=== PATIENT | male | born 1940 | race Caucasian/White ===

== ENCOUNTER → 2017-04-09 | Outpatient (CLI) | payer MEDICARE, OTHER ==
[~2017-04-09] MED LIST: ATORVASTATIN CA40 MG PO; DEPO-TESTO200 MG/1 M IM; LISINOPRIL2.5 MG PO; LOVASTATIN20 MG PO; LOVAZA1 GM PO; MULTIVITAMINS1 EAC7 PO; NITROFURANTOIN100 MG PO; POTASSIUM CITRATE PO; TESTOSTERONE IM; TYLENOL WITH C1 EACH PO; VIAGRA100 MG PO; VIT IM; VITAMIN B12 IM; Z.0.FLOMAX0.4 MG PO
--- NOTE | 2017-04-09 15:13 | Diagnostic Imaging Report ---
CT scan of the RIGHT SHOULDER, WITHOUT intravenous contrast. TECHNIQUE: Standard departmental protocols were used. Sagittal and coronal reformatted images were obtained. HISTORY: Pain, rotator cuff tear COMPARISON: Left shoulder radiograph January 16, 2017, which demonstrated an implanted cardiac device. FINDINGS: Bones: No acute displaced fracture. Superior subluxation of the humeral head, abutting the undersurface of the distal clavicle. Multiple metallic anchors within the humeral head. Joints: Moderate degenerative changes of the glenohumeral joint. Severe degenerative changes of the acromioclavicular joint. Soft Tissues: Moderate to severe atrophy of the of the supraspinatus muscle. Mild atrophy of the infraspinatus muscle. Other: Partially visualized wires from the implanted cardiac device. Multilevel degenerative changes of the visualized spine. IMPRESSION: Findings compatible with a chronic full-thickness rotator cuff tear/retear, supraspinatus and likely at least some of the conjoined infraspinatus fibers. Signed by: Dr. Juan Fairchild D.O., M.M.M. on 04/09/2017 3:09 PM
== END ==
LOC: CT 11:26
PROVIDERS: ATTEND Internal Medicine
DX: M25.511 Pain in right shoulder (principal)

== ENCOUNTER → 2017-06-12 | Outpatient (CLI) | payer MEDICARE, OTHER ==
--- NOTE | 2017-06-12 09:54 | Diagnostic Imaging Report ---
PROCEDURE:X-RAY ABDOMEN - KUB COMPARISON:CT abdomen and pelvis 07/16/2016. INDICATIONS:CALCULUS OF KIDNEY FINDINGS: There is a non-obstructed bowel-gas pattern. Bilateral nephrolithiasis, the largest in the right measuring 4.3 mm and the largest in the left measuring 4.5 mm. There are no calcifications projected over the expected course of the ureters or bladder. There are no acute osseous abnormalities. The lung bases are clear. Surgical clips are present in the right upper quadrant. CONCLUSION: Bilateral nephrolithiasis. Dictated by: Martin Heck M.D. on 06/12/2017 at 9:54 Electronically approved by: Martin Heck M.D. on 06/12/2017 at 9:54
== END ==
LOC: RAD 08:27 → EDBD 08:27
PROVIDERS: ATTEND Urology
DX: N20.0 Calculus of kidney (principal)
CPT/HCPCS: 74018

== ENCOUNTER → 2018-01-27 | Day surgery (SDC) | payer MEDICARE, OTHER ==
[2018-01-22 15:23] LABS: BASOPHILS # (AUTO) 0.1 (0.0-0.1); BASOPHILS % 0.9 % (0.0-1.0); EOSINOPHILS # (AUTO) 0.4 (0.0-0.4); EOSINOPHILS % 4.8 % (0.0-6.0); HEMOGLOBIN 17.5 g/dL (14.0-18.0); LYMPHOCYTES # (AUTO) 1.6 (1.0-3.2); LYMPHOCYTES % 20.3 % (18.0-39.1); MEAN CORPUSCULAR HEMOGLOBIN 31.5 pg (28-32); MEAN CORPUSCULAR HGB CONC 33.7 g/dL (31-35); MEAN CORPUSCULAR VOLUME 93.7 fL (81-99); MONOCYTES # (AUTO) 0.9 (0.2-0.8); MONOCYTES % 11.6 % (4.4-11.3); NEUTROPHILS # (AUTO) 4.8 (2.1-6.9); NEUTROPHILS % 62.1 % (38.7-80.0); PLATELET COUNT 214 x10e3/uL (140-360); RED BLOOD COUNT 5.55 x10e6/uL (4.3-5.7); RED CELL DISTRIBUTION WIDTH 12.9 % (11.7-14.4)
--- NOTE | 2018-01-22 15:38 | Diagnostic Imaging Report ---
Frontal and lateral views of the chest. HISTORY: Preop, UTI COMPARISON: Images from chest radiograph October 30, 2015 DISCUSSION: Stable appearance of the dual-lead implanted cardiac device. Lungs: Minimal left basilar atelectasis. Persistent diffusely increased interstitial markings. No evidence of a consolidative pneumonia or pulmonary alveolar edema. Pleura: No pleural effusion or pneumothorax. Heart and mediastinum: The cardiomediastinal silhouette appears unremarkable. Mildly prominent central pulmonary vascular. Bones: No acute osseous lesion. IMPRESSION: 1. No acute radiographic abnormality. 2. No significant interval change. 3. Stable prominent central pulmonary vasculature and pulmonary interstitium, considerations include pulmonary vascular congestion and interstitial edema versus chronic interstitial lung disease. Signed by: Dr. Juan Fairchild D.O., M.M.M. on 01/22/2018 3:35 PM
[~2018-01-27] MED LIST changes: +B-125000 MCG SC; +DEXAMETHASONE SOD PHOS INJ 4 MG/ML VIAL ONE; +FENTANYL CITRATE/PF 100MCG/2 ML INJ ONE; +GENTAMICIN 80MG/NS 100 ML 200 ML IV ONE; +IOPAMIDOL 610MG/1ML 300 MG/ML VIAL IV ONE; +KETOROLAC TROMETHAMINE 30 MG/ML VIAL ONE; +LEVOFLOXACIN 500MG/D5W 100ML 100 ML IV ONE; +LIDOCAINE HCL 2% LOCAL INJ 5 ML SDV VIAL INJ ONE; +MIDAZOLAM HCL 2 MG/2 ML VIAL ONE; +ONDANSETRON HCL INJ 2 MG/ML VIAL ONE; +PROPOFOL IV EMULSION 10 MG/ML 20 ML VIAL ONE; +SEVOFLURANE INHAL SOLN 250 ML PEN BTL ONE
--- NOTE | 2018-01-27 07:42 | Diagnostic Imaging Report ---
PROCEDURE:X-RAY ABDOMEN - KUB COMPARISON:Patients [facility], DX, ABDOMEN-1VIEW (KUB), 06/12/2017, 8:43. INDICATIONS:PREOPERATIVE XRAY FOR LITHOTRIPSY FINDINGS: Clips in the right mid abdomen and pelvis are again noted. Large amount of stool and gas interferes with optimal valuation of the kidneys for stones. There are however small stones overlying both renal shadows. There are no dilated loops of bowel to suggest obstruction. There are no masses. There is no evidence of free air. No acute osseous abnormalities are present. CONCLUSION: Small bilateral renal stones. Morgan Moe D.O. Dictated by: Morgan Moe D.O. on 01/27/2018 at 7:50 Electronically approved by: Morgan Moe D.O. on 01/27/2018 at 7:50
[2018-01-27 11:00] VITALS: BP 140/88
--- OUTSIDE RECORDS SUMMARY | 2018-02-02 13:00 | XMS REPORT ---
Author Author [facility] Address Unknown Phone Unavailable Care Team Providers Care Furniture Finisher Name Role Phone FLACO NEW Unavailable Unavailable SHIRLEY MCCAIN Unavailable Unavailable Iris DAVIS Unavailable Unavailable Problems This patient has no known problems. Allergies, Adverse Reactions, Alerts This patient has no known allergies or adverse reactions. Medications This patient has no known medications. Results Test Description Test Time Test Comments Text Results Atomic Results Result Comments ABDOMEN-1VIEW (KUB) 2018-01-27 07:50:00 [place] [address] Patient Name: LYNNE PAUL MR #: [id number] : 1940 Age/Sex: 77/M Req #: [id number] Adm Physician: Ordered by: FLACO NEW MD Report #: [id number] Location: OR Room/Bed: Procedure: [id number] DX/ABDOMEN-1VIEW (KUB) Exam Date: 01/27/18 Exam Time: 0705 REPORT STATUS: Signed PROCEDURE: X-RAY ABDOMEN - KUB COMPARISON: [facility], DX, ABDOMEN-1VIEW (KUB), 06/12/2017, 8:43. INDICATIONS: PREOPERATIVE XRAY FOR LITHOTRIPSY FINDINGS: Clips in the right mid abdomen and pelvis are again noted. Large amount of stool and gas interferes with optimal valuation of the kidneys for stones. There are however small stones overlying both renal shadows. There are no dilated loops of bowel to suggest obstruction. There are no masses. There is no evidence of free air. No acute osseous abnormalities are present. CONCLUSION: Small bilateral renal stones. Juana Moe D.O. Dictated by: Juana Moe D.O. on 01/27/2018 at 7:50 Electronically approved by: Juana Moe D.O. on 01/27/2018 at 7:50 Dictated By: JUANA MOE DO 9 Transcribed By: KALEB on 01/27/18749 COPY TO: FLACO NEW MD CHEST 2 VIEWS 2018-01-22 15:29:00 [place] [address] Patient Name: LYNNE PAUL MR #: [id number] : 1940 Age/Sex: 77/M Req #: [id number] Adm Physician: Ordered by: FLACO NEW MD Report #: [id number] Location: OR Room/Bed: Procedure: [id number] DX/CHEST 2 VIEWS Exam Date: 01/22/18 Exam Time: 1510 REPORT STATUS: Signed Frontal and lateral views of the chest. HISTORY: Preop, UTI COMPARISON: Images from chest radiograph October 30, 2015 DISCUSSION: Stable appearance of the dual-lead implanted cardiac device. Lungs: Minimal left basilar atelectasis. Persistent diffusely increased interstitial markings. No evidence of a consolidative pneumonia or pulmonary alveolar edema. Pleura: No pleural effusion or pneumothorax. Heart and mediastinum: The cardiomediastinal silhouette appears unremarkable. Mildly prominent central pulmonary vascular. Bones: No acute osseous lesion. IMPRESSION: 1. No acute radiographic abnormality. 2. No significant interval change. 3. Stable prominent central pulmonary vasculature and pulmonary interstitium, considerations include pulmonary vascular congestion a nd interstitial edema versus chronic interstitial lung disease. Signed by: Dr. Dwight Fairchild D.O., M.M.M. on 01/22/2018 3:35 PM Dictated By: DWIGHT FAIRCHILD DO 34 Transcribed By: LAW on 01/22/181534 COPY TO: FLACO NEW MD ABDOMEN-1VIEW (KUB) [place] [address] Patient Name: LYNNE PAUL MR #: [id number] : 1940 Age/Sex: 76/M Req #: [id number] Adm Physician: Ordered by: FLACO NEW MD Report #: [id number] Location: [facility] Room/Bed: Procedure: [id number] DX/ABDOMEN-1VIEW (KUB) Exam Date: 06/12/17 Exam Time: 0840 REPORT STATUS: Signed PROCEDURE: X-RAY ABDOMEN - KUB COMPARISON: CT abdomen and pelvis 07/16/2016. INDICATIONS: CALCULUS OF KIDNEY FINDINGS: There is a non-obstructed bowel-gas pattern. Bilateral nephrolithiasis, the largest in the right measuring 4.3 mm and the largest in the left measuring 4.5 mm. There are no calcifications projected over the expected course of the ureters or bladder. There are no acute osseous abnormalities. The lung bases are clear. Surgical clips are present in the right upper quadrant. CONCLUSION: Bilateral nephrolithiasis. Dictated by: Harshal Irene M.D. on 06/12/2017 at 9:54 Electronically approved by: Harshal Irene M.D. on 06/12/2017 at 9:54 Dictated By: HARSHAL IRENE MD 3 Transcribed By: KALEB on 06/12/17953 COPY TO: FLACO NEW MD CT SHOULDER RIGHT WO [place] [address] Patient Name: LYNNE PAUL MR #: [id number] : 1940 Age/Sex: 76/M Req #: [id number] Adm Physician: Ordered by: SHIRLEY MCCAIN MD Report #: [id number] Location: CT Room/Bed: Procedure: [id number] CT/CT SHOULDER RIGHT WO Exam Date: 04/09/17 Exam Time: 1240 REPORT STATUS: Signed CT scan of the RIGHT SHOULDER, WITHOUT intravenous contrast. TECHNIQUE: Standard departmental protocols were used. Sagittal and coronal reformatted images were obtained. HISTORY: Pain, rotator cuff tear COMPARISON: Left shoulder radiograph January 16, 2017, which demonstrated an implanted cardiac device. FINDINGS: Bones: No acute displaced fracture. Superior subluxation of the humeral head, abutting the undersurface of the distal clavicle. Multiple metallic anchors within the humeral head. Joints: Moderate degenerative changes of the glenohumeral joint. Severe degenerative changes of the acromioclavicular joint. Soft Tissues: Moderate to severe atrophy of the of the supraspinatus muscle. Mild atrophy of the infraspinatus muscle. Other: Partially visualized wires from the implanted cardiac device. Multilevel degenerative changes of the visualized spine. IMPRESSION: Findings compatible with a chronic full-thickness rotator cuff tear/retear, supraspinatus and likely at least some of the conjoined infraspinatus fibers. Signed by: Dr. Dwight Fairchild D.O., M.M.M. on 04/09/2017 3:09 PM Dictated By: DWIGHT FAIRCHILD DO 1509 Transcribed By: LAW on 04/09/171508 COPY TO: SHIRLEY MCCAIN MD CT SHOULDER LEFT WO [place] [address] Patient Name: LYNNE PAUL MR #: [id number] : 1940 Age/Sex: 76/M Req #: [id number] Adm Physician: Ordered by: SHIRLEY MCCAIN MD Report #: [id number] Location: CT Room/Bed: Procedure: [id number] CT/CT SHOULDER LEFT WO Exam Date: 01/23/17 Exam Time: 1401 REPORT STATUS: Signed TECHNIQUE: Computed tomography imaging of the LEFT SHOULDER was performed WITHOUT injected contrast. COMPARISON: None available. HISTORY: Pain FINDINGS: No acute fracture. Cystic change on the greater and lesser tuberosity. Narrowed acromiohumeral interval secondary to chronic rotator cuff tear. Mild glenohumeral degenerative arthrosis. Mild acromioclavicular widening Soft tissues otherwise are unremarkable. No fluid collection or visualized mass. IMPRESSION: Mild glenohumeral degenerative arthrosis. Chronic high-grade rotator cuff tear. Signed by: Dr. Duke Castro M.D. on 01/23/2017 3:26 PM Dictated By: DUKE CASTRO MD 1526 Transcribed By: LAW on 01/23/17 1526 COPY TO: SHIRLEY MCCAIN MD SHOULDER LEFT COMPLETE [place] [address] Patient Name: LYNNE PAUL MR #: [id number] : 1940 Age/Sex: 76/M Req #: [id number] Adm Physician: Ordered by: THU DAVIS MD Report #: [id number] Location: ER Room/Bed: Procedure: [id number] DX/SHOULDER LEFT COMPLETE Exam Date: 01/16/17 Exam Time: 1020 REPORT STATUS: Signed PROCEDURE: X-RAY LEFT SHOULDER, COMPLETE COMPARISON: Chest radiograph 05/12/2016. INDICATIONS: FELL ON LEFT SHOULDER FINDINGS: No acute, displaced fracture or dislocation. The humeral head projects appropriately adjacent to the glenoid. Mild degenerative changes of the acromioclavicular and glenohumeral joints. Partially visualized left subclavian approach implantable cardiac device.. CONCLUSION: No acute osseous abnormality. Dictated by: Alfred Mata M.D. on 01/16/2017 at 11:00 Electronically approved by: Alfred Mata M.D. on 01/16/2017 at 11:00 Dictated By: ALFRED MATA MD 1100 Transcribed By: KALEB on 01/16/17 1100 COPY TO: THU DAVIS MD
--- NOTE | 2018-03-02 03:53 | Operative Report ---
DATE OF PROCEDURE: January 27, 2018 PREOPERATIVE DIAGNOSES 1. Urinary tract infections. 2. Nephrolithiasis. POSTOPERATIVE DIAGNOSES 1. Urinary tract infections. 2. Nephrolithiasis. 3. Urethral stricture disease. OPERATIONS PERFORMED 1. Cystourethroscopy with calibration and dilation of urethral stricture disease (separate procedure performed for the diagnosis of stricture disease). 2. Cystourethroscopy with bilateral ureteral catheterization and retrograde ureteropyelography (separate procedure performed for the urinary tract infections and nephrolithiasis). 3. Interpretation of retrograde ureterography. ANESTHESIA: General. COMPLICATION: None. CLINICAL SUMMARY: Richi Trejo is a complicated 77-year-old man with prior multiple urological surgeries. Patient was brought to the operating room to evaluate and manage his lower and upper urinary tracts. He is aware of the risks of bleeding, infection, injury to adjacent structures, need for additional procedure, and elected to proceed. OPERATIVE PROCEDURE IN DETAIL: Informed consent was verified. Richi Trejo was properly identified, taken to the operating room, placed on the cystoscopy table in supine position. Anesthesia was uneventfully begun. The patient was then carefully and gently repositioned in the dorsal lithotomy position with all pressure points well padded. His genitalia were prepared and draped in usual sterile fashion. The 22.5-Khmer cystoscope sheath with visual obturator in place was atraumatically inserted in patient's urethra. It was guided down the penile urethra that exhibited some wide-caliber stricturing. We dilated it through this stricture as we enlarged the stricture area to 22.5-Khmer, which is the size of the scope. We then proceeded to the proximal urethra, which exhibited no strictures. There was a blind-ending channel, which previously was related to the scrotal abscess. We passed through a normal sphincteric region and through the prostate bed, which was significant for being status post prior prostate ablative procedure. There was some anterior tissue that was slightly caving in more from the left and right-hand side, but the prostate bed was relatively open. We entered the patient's bladder. Panendoscopy revealed heavy trabeculations, but no tumors, no stones, and no diverticula. Normally positioned and configured ureteral orifices were identified. An 8-Khmer catheter was used to cannulate each ureter and retrograde ureteropyelograms were performed. Interpretation of retrograde ureteropyelography: Contrast was instilled in retrograde fashion bilaterally. There were no tumors, no stones, and no diverticula. Unobstructed drainage was observed bilaterally fluoroscopically. J-hooking was noted bilaterally. The patient's known nephrolithiasis was really not well visualized on today's examination. The patient's bladder was drained. The patient was uneventfully reversed from anesthesia and taken to recovery room in stable condition. There were no complications to the procedure. He tolerated the procedure well. Explicit postop instructions were given. Will follow the patient up in the office. At which point in time, will perform uroflowmetry and bladder ultrasonography. Job#: [id number] CQ
== END | disposition home or self-care (01) ==
LOC: OR 06:06
PROVIDERS: ATTEND Urology
DX: N39.0 Urinary tract infection, site not specified (principal); N35.919 Unspecified urethral stricture, male, unspecified site; N20.0 Calculus of kidney; N32.89 Other specified disorders of bladder; I10 Essential (primary) hypertension; F17.210 Nicotine dependence, cigarettes, uncomplicated; Z88.0 Allergy status to penicillin; Z88.6 Allergy status to analgesic agent; Z88.3 Allergy status to other anti-infective agents; Z88.2 Allergy status to sulfonamides; Z01.810 Encounter for preprocedural cardiovascular examination; Z01.812 Encounter for preprocedural laboratory examination; Z01.818 Encounter for other preprocedural examination; Z95.0 Presence of cardiac pacemaker
CPT/HCPCS: 36415; 52281; 71046; 74420; 85025; 93005; C1758; J1100; J1580; J1885; J1956; J2001; J2250; J2405; Q9967; 74018

== ENCOUNTER → 2018-05-05 | Day surgery (SDC) | payer MEDICARE, OTHER ==
[2018-05-03 14:47] LABS: BASOPHILS # (AUTO) 0.1 (0.0-0.1); BASOPHILS % 0.9 % (0.0-1.0); EOSINOPHILS # (AUTO) 0.5 (0.0-0.4); HEMOGLOBIN 18.6 g/dL (14.0-18.0); LYMPHOCYTES # (AUTO) 1.7 (1.0-3.2); LYMPHOCYTES % 19.1 % (18.0-39.1); MEAN CORPUSCULAR HEMOGLOBIN 31.5 pg (28-32); MEAN CORPUSCULAR HGB CONC 33.8 g/dL (31-35); MEAN CORPUSCULAR VOLUME 93.1 fL (81-99); MONOCYTES # (AUTO) 1.1 (0.2-0.8); MONOCYTES % 12.3 % (4.4-11.3); NEUTROPHILS # (AUTO) 5.3 (2.1-6.9); NEUTROPHILS % 61.2 % (38.7-80.0); PLATELET COUNT 217 x10e3/uL (140-360); RED BLOOD COUNT 5.91 x10e6/uL (4.3-5.7); RED CELL DISTRIBUTION WIDTH 13.3 % (11.7-14.4)
[~2018-05-05] MED LIST changes: -DEXAMETHASONE SOD PHOS INJ 4 MG/ML VIAL ONE; +EPHEDRINE SULFATE INJ 50 MG/10 ML SYR ONE; -FENTANYL CITRATE/PF 100MCG/2 ML INJ ONE; -GENTAMICIN 80MG/NS 100 ML 200 ML IV ONE; -IOPAMIDOL 610MG/1ML 300 MG/ML VIAL IV ONE; -KETOROLAC TROMETHAMINE 30 MG/ML VIAL ONE; -LEVOFLOXACIN 500MG/D5W 100ML 100 ML IV ONE; -LIDOCAINE HCL 2% LOCAL INJ 5 ML SDV VIAL INJ ONE; +NORCO 10-325 T1 EACH PO; -ONDANSETRON HCL INJ 2 MG/ML VIAL ONE; -PROPOFOL IV EMULSION 10 MG/ML 20 ML VIAL ONE; +PROPOFOL IV EMULSION 10 MG/ML 50 ML VIAL ONE; -SEVOFLURANE INHAL SOLN 250 ML PEN BTL ONE; +SIMETHICONE 40 MG/0.6 ML BTL ONE
[2018-05-05 08:30] VITALS: BP 102/61
== END | disposition home or self-care (01) ==
LOC: OR 06:25
PROVIDERS: ATTEND Internal Medicine Gastroenterology
DX: K57.90 Diverticulosis of intestine, part unspecified, without perforation or abscess without bleeding (principal); D12.3 Benign neoplasm of transverse colon; D12.4 Benign neoplasm of descending colon; Z85.038 Personal history of other malignant neoplasm of large intestine; K64.8 Other hemorrhoids; K64.4 Residual hemorrhoidal skin tags; Z71.3 Dietary counseling and surveillance; E66.3 Overweight; F17.210 Nicotine dependence, cigarettes, uncomplicated; Z88.6 Allergy status to analgesic agent; Z88.3 Allergy status to other anti-infective agents; Z88.0 Allergy status to penicillin; Z88.2 Allergy status to sulfonamides; Z01.810 Encounter for preprocedural cardiovascular examination; Z01.812 Encounter for preprocedural laboratory examination; Z68.25 Body mass index [BMI] 25.0-25.9, adult; Z95.0 Presence of cardiac pacemaker
CPT/HCPCS: 36415; 45380; 45385; 85025; 88305; 93005; J2250; 45384

== ENCOUNTER → 2018-06-30 | Day surgery (SDC) | payer MEDICARE, OTHER ==
[2018-06-28 12:26] LABS: BASOPHILS # (AUTO) 0.1 (0.0-0.1); EOSINOPHILS # (AUTO) 0.4 (0.0-0.4); EOSINOPHILS % 4.6 % (0.0-6.0); HEMATOCRIT 56.3 % (38.2-49.6); HEMOGLOBIN 18.7 g/dL (14.0-18.0); LYMPHOCYTES # (AUTO) 1.5 (1.0-3.2); LYMPHOCYTES % 18.3 % (18.0-39.1); MEAN CORPUSCULAR HEMOGLOBIN 31.2 pg (28-32); MEAN CORPUSCULAR HGB CONC 33.2 g/dL (31-35); MONOCYTES # (AUTO) 1.1 (0.2-0.8); MONOCYTES % 13.1 % (4.4-11.3); NEUTROPHILS # (AUTO) 5.1 (2.1-6.9); NEUTROPHILS % 62.8 % (38.7-80.0); PLATELET COUNT 225 x10e3/uL (140-360); RED BLOOD COUNT 5.99 x10e6/uL (4.3-5.7); RED CELL DISTRIBUTION WIDTH 13.4 % (11.7-14.4)
[2018-06-28 12:36] LABS: INR 0.84
[2018-06-28 12:44] LABS: ANION GAP 13.5 mmol/L (8-16); CALCIUM 10.8 mg/dL (8.4-10.2); CREATININE, SERUM 1.29 mg/dL (0.72-1.25); POTASSIUM 5.5 mmol/L (3.5-5.1)
--- NOTE | 2018-06-28 14:56 | Diagnostic Imaging Report ---
EXAM: CHEST 2 VIEWS, PA and lateral DATE: 06/28/2018 Time stamp on exam: 12:28 PM INDICATION: Preoperative for generator change. COMPARISON: 01/22/2018 FINDINGS: LINES/TUBES: Dual lead cardiac device from a left subclavian approach appears intact. LUNGS: Chronic appearing interstitial changes. PLEURA: No effusions or pneumothorax. HEART AND MEDIASTINUM: Normal size and contour. BONES AND SOFT TISSUES: No acute findings. IMPRESSION: Chronic appearing interstitial changes. Signed by: Dr. Morgan Moe DO on 06/28/2018 2:53 PM
[~2018-06-30] VITALS: Ht 175.3 cm; Wt 81.6 kg
[2018-06-30] VITALS (12 sets, daily range): BP systolic 127–145; BP diastolic 61–80
[~2018-06-30] MED LIST changes: +BACITRACIN 50,000 UNIT VIAL ONE; -EPHEDRINE SULFATE INJ 50 MG/10 ML SYR ONE; +FENTANYL CITRATE/PF 100MCG/2 ML INJ ONE; +LEVOFLOXACIN 500MG/D5W 100ML 100 ML IV ONE; +LIDOCAINE HCL 2% LOCAL 20 ML VIAL ONE; -PROPOFOL IV EMULSION 10 MG/ML 50 ML VIAL ONE; -SIMETHICONE 40 MG/0.6 ML BTL ONE; +SODIUM CHLORIDE 0.9% 1000ML 1,000 ML ONE; +SODIUM CHLORIDE 0.9% 500ML 1,000 ML ONE
--- NOTE | 2018-06-30 15:55 | Operative Report ---
DATE OF PROCEDURE: 06/30/2018 SURGEON: Emiliano Light MD PROCEDURES: 1. Temporary transvenous pacemaker insertion. 2. Generator placement. 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 ANESTHESIA: 2% lidocaine for local anesthesia. BLOOD LOSS: 5 mL. DESCRIPTION OF PROCEDURE: After informed consent, the patient was brought to the cardiac catheterization laboratory and placed on table. His right groin was painted and draped in a sterile fashion. Lidocaine injected in the right groin for local anesthesia. The right femoral vein was accessed by Seldinger technique and a 5-[place] Islander sheath was placed in the right femoral vein. Transvenous pacemaker was advanced through the sheath and placed in the right ventricle. Thresholds were checked. Appropriate capture was noted. The pacemaker was anchored to the underlying leg using Tegaderm. Then, left upper chest was painted and draped in a sterile fashion. Lidocaine was injected to the left upper chest for local anesthesia. An incision was made with #11 blade. A pocket was fashioned by blunt and sharp dissection. The capsule of the pacemaker was incised and the pacemaker generator was removed from the pocket. Pocket was irrigated with antibiotic solution. The generator was disconnected from the leads and the leads were connected to the new generator. Good capture was noted. Thresholds were checked. The pacemaker was anchored to the underlying muscle using 2-0 Vicryl. Subcutaneous tissue was closed using 2-0 Vicryl and skin was closed using 3-0 Vicryl. The wound was cleaned and dressed in a sterile fashion. The patient was given Levaquin as he was allergic to vancomycin and penicillin prior to the start of procedure. The patient tolerated the procedure without any complications. REPORT: [employer] Operator is [employer], model name was Tixie ([employer] IS1, model number is L311, and serial number is [id number]. MEASURED DATA: Right atrium; intrinsic 7.7 mV, threshold 0.8 V at 0.4 milliseconds, impedance was 587, current was 1.4 milliamps. Right ventricle; intrinsic was 11.6 mV, threshold was 2.1 V at 0.4 milliseconds, impedance was 597, current was 3.7 milliamps. Lower rate limit was 60, upper rate limit was 130. PVAR was 240 to 320 milliseconds. MD ROBER Dong/JEAN CLAUDE /[id number]
== END | disposition home or self-care (01) ==
LOC: CATH LAB 07:28
DX: Z45.010 Encounter for checking and testing of cardiac pacemaker pulse generator [battery] (principal); E78.5 Hyperlipidemia, unspecified; Z88.1 Allergy status to other antibiotic agents; Z88.2 Allergy status to sulfonamides; Z01.810 Encounter for preprocedural cardiovascular examination; Z01.812 Encounter for preprocedural laboratory examination; Z01.818 Encounter for other preprocedural examination
CPT/HCPCS: 33228; 36415 ×2; 71046; 80048; 84132; 85025; 85610; 93005; C1785; J1956; J2001; J2250; J7030; J7040; 33210

== ENCOUNTER → 2018-08-26 | Outpatient (CLI) | payer MEDICARE, OTHER ==
[~2018-08-26] MED LIST changes: -BACITRACIN 50,000 UNIT VIAL ONE; -FENTANYL CITRATE/PF 100MCG/2 ML INJ ONE; -LEVOFLOXACIN 500MG/D5W 100ML 100 ML IV ONE; -LIDOCAINE HCL 2% LOCAL 20 ML VIAL ONE; -MIDAZOLAM HCL 2 MG/2 ML VIAL ONE; -SODIUM CHLORIDE 0.9% 1000ML 1,000 ML ONE; -SODIUM CHLORIDE 0.9% 500ML 1,000 ML ONE
--- NOTE | 2018-08-26 15:30 | Diagnostic Imaging Report ---
EXAM: ABDOMEN-2 VIEWS (KUB) INDICATION: Renal calculus. COMPARISON: KUB 01/27/2018. CT abdomen/pelvis 07/16/2016. FINDINGS: Nonobstructive bowel gas pattern. Bowel gas partially obscures visualization of the kidneys. There is a 4 mm calcification overlying the right mid kidney and two 5 mm calcifications overlying the left upper kidney. Additional 1 mm calcifications overlie the left mid kidney. No evidence of ureteral stone. There are calcified phleboliths in the bladder. No acute osseous abnormality. Surgical clips project over the right hemiabdomen. IMPRESSION: Somewhat limited study due to overlying bowel gas. Likely bilateral renal stones as above. Signed by: Dr. Salud Mcintosh MD on 08/26/2018 3:27 PM
== END ==
LOC: RAD 14:07
PROVIDERS: ATTEND Urology
DX: N20.0 Calculus of kidney (principal)
CPT/HCPCS: 74018

== ENCOUNTER → 2018-09-14 | Outpatient (CLI) | payer MEDICARE, OTHER ==
--- NOTE | 2018-09-14 18:34 | Diagnostic Imaging Report ---
EXAM: CT ABDOMEN/PELVIS WO DATE: 09/14/2018 4:02 PM INDICATION: Renal calculi COMPARISON: CT dated 07/16/2016 TECHNIQUE: The abdomen and pelvis were scanned using a multidetector helical scanner. Coronal and sagittal reformations were obtained. CT low dose techniques were utilized, as applicable. IV Contrast: 0 ml Isovue 300/370 FINDINGS: Lack of IV contrast decreases sensitivity in evaluating abdominal and pelvic organs. LOWER THORAX: No consolidations LIVER/BILIARY: No masses. No ductal dilatation. GALLBLADDER: Unremarkable SPLEEN: Unremarkable PANCREAS: Unremarkable ADRENALS: No nodules KIDNEYS: Multiple bilateral nonobstructing renal collecting and cortical calculi. The largest calculus conglomerate in the left mid pole measures 18 mm, the largest on the right measures 5 mm. Stable soft tissue nodule between the anterior right kidney in the liver. Multiple bilateral renal cysts which are incompletely characterized on this noncontrast exam. One of these lesions is exophytic off the left superior kidney has increased in size now measuring 11 mm, previously 8 mm in 2017 GI TRACT: No wall thickening or evidence of obstruction. Colonic diverticulosis. VESSELS: Unremarkable PERITONEUM/RETROPERITONEUM: No free air or fluid LYMPH NODES: No lymphadenopathy REPRODUCTIVE ORGANS/BLADDER: Prostatomegaly. No bladder calculi. SOFT TISSUES: Unremarkable BONES: No suspicious bone lesions. IMPRESSION: 1. Multiple bilateral nonobstructing renal calculi measuring up to 18 mm on the left in conglomerate and 5 mm on the right. 2. Multiple bilateral renal cysts aren't completely characterized. One on the superior pole the left kidney has increased in size measuring 11 mm, previously 8 mm in 2017, and measures greater than soft tissue density which may represent a hemorrhagic or partially calcified cyst. Dedicated renal ultrasound or multiphase cross-sectional imaging is recommended for further characterization of these renal lesions. Signed by: Kory Kramer MD on 09/14/2018 6:30 PM
== END ==
LOC: EDBD 15:50 → CT 15:50 → EDBD 16:30
PROVIDERS: ATTEND Urology
DX: N20.0 Calculus of kidney (principal)
CPT/HCPCS: 74176

== ENCOUNTER → 2018-10-22 | Day surgery (SDC) | payer MEDICARE, OTHER ==
[2018-10-20 11:57] LABS: BASOPHILS # (AUTO) 0.1 (0.0-0.1); EOSINOPHILS # (AUTO) 0.3 (0.0-0.4); EOSINOPHILS % 4.4 % (0.0-6.0); HEMATOCRIT 57.4 % (38.2-49.6); HEMOGLOBIN 19.2 g/dL (14.0-18.0); LYMPHOCYTES # (AUTO) 1.4 (1.0-3.2); MEAN CORPUSCULAR HEMOGLOBIN 29.4 pg (28-32); MEAN CORPUSCULAR HGB CONC 33.4 g/dL (31-35); MEAN CORPUSCULAR VOLUME 87.9 fL (81-99); MONOCYTES # (AUTO) 1.1 (0.2-0.8); MONOCYTES % 13.6 % (4.4-11.3); NEUTROPHILS # (AUTO) 4.8 (2.1-6.9); NEUTROPHILS % 62.6 % (38.7-80.0); PLATELET COUNT 246 x10e3/uL (140-360); RED BLOOD COUNT 6.53 x10e6/uL (4.3-5.7); RED CELL DISTRIBUTION WIDTH 14.2 % (11.7-14.4)
--- NOTE | 2018-10-20 13:00 | Diagnostic Imaging Report ---
Exam: KUB - 2 views Clinical History: Renal calculi Comparison: CT abdomen and pelvis of 09/06/2018 and multiple prior abdominal radiographs, most recently 08/26/2018 Findings: Again seen is a cluster of renal calculi in the right upper kidney, measuring approximately 1.7 cm in longest dimension superior to inferiorly. No new calculi identified. Postoperative changes across the right abdomen with surgical clips in place. Not certain bowel gas pattern. Mild degenerative changes of the visualized spine and left greater than left right hip joints. Impression: Cluster of left upper pole renal calculi, not significantly changed from the CT of 09/06/2018. Signed by: Hilary Tyler MD on 10/20/2018 12:56 PM
[~2018-10-22] MED LIST changes: +B&O 60MG R/S 60 MG SUPP PR ONE; +CEFTRIAXONE SOD 1 GM/NS 50 ML 50 ML IV ONE; +DEXAMETHASONE SOD PHOS INJ 4 MG/ML VIAL ONE; +FENTANYL CITRATE/PF 100MCG/2 ML INJ ONE; +GENTAMICIN 80MG/NS 100 ML 200 ML IV ONE; +IOPAMIDOL 610MG/1ML 300 MG/ML VIAL IV ONE; +LIDOCAINE HCL 2% LOCAL INJ 5 ML SDV VIAL INJ ONE; +MIDAZOLAM HCL 2 MG/2 ML VIAL ONE; +MULTI-VITAMIN1 EACH PO; +ONDANSETRON HCL INJ 2MG/ML 2ML 2 MG/ML VIAL ONE; +PROPOFOL IV EMULSION 10 MG/ML 20 ML VIAL ONE; +SEVOFLURANE INHAL SOLN 250 ML PEN BTL ONE
[2018-10-22 09:40] VITALS: BP 145/95
--- NOTE | 2018-10-22 16:18 | Operative Report ---
DATE OF PROCEDURE: 10/22/2018 SURGEON: Barry Parry MD PREOPERATIVE DIAGNOSES: 1. Left nephrolithiasis. 2. Potential left renal colic. POSTOPERATIVE DIAGNOSES: 1. Left nephrolithiasis. 2. Potential left renal colic. 3. Urethral stricture disease. OPERATION PERFORMED: Note: These were all staged procedures as part of a multi-stage and multi-step process in managing the patient's urolithiasis. 1. Left-sided extracorporeal shock wave lithotripsy (separate procedure performed for the 18 mm stone cluster in the upper pole of left kidney, done from separate approach). 2. Cystourethroscopy with bilateral ureteral catheterization and retrograde ureteropyelography. 3. Interpretation of retrograde ureteropyelography. 4. Cystourethroscopy with insertion of left indwelling ureteral stent (separate procedure performed to relieve the renal colic). 5. Cystourethroscopy with calibration and dilation of recurrent urethral stricture disease (separate procedure performed for the stricture disease). ANESTHESIA: General. COMPLICATIONS: None. CLINICAL SUMMARY: Richi Trejo is a 77-year-old man with recurrent urolithiasis. He also has had a transurethral prostatectomy remotely in the past. He has hypospadias and has had urethral stricture disease as a result of prior management by prior urologist. The patient is brought for the above procedure. He is aware of the risks of bleeding, infection, injury to adjacent structures, need for additional procedures and elected to proceed. OPERATIVE PROCEDURE IN DETAIL: Informed consent was verified. Richi Trejo was properly identified taken to the operating room, placed on the lithotripsy table in supine position. Anesthesia was uneventfully begun. The left upper pole large cluster of stones was localized with biplanar fluoroscopy. A total of 3000 shocks were delivered, fragmentation noted. The patient was then carefully gently repositioned to the dorsal lithotomy position with all pressure points well padded. His genitalia were prepared and draped in usual sterile fashion. A 22.5-Surinamese cystourethroscope sheath with the visual obturator in place was atraumatically inserted in the patient's hypospadiac urethral meatus. There was significant resistance and under direct vision, we dilated the urethra to 22.5-Surinamese in size. The strictures that were significant were at the distal portion of the urethra. The proximal portion of the urethra exhibited only wide caliber scarring, but no evidence of obstruction. We passed through the normal sphincteric region, entered into the prostatic urethra, which exhibited regrowth and visual obstruction at the apical region as well as collapse of the residual BPH more proximally. Visual obstruction of the prostate bed was noted. We went to the patient's bladder and the bladder was drained. Panendoscopy revealed heavy trabeculations of the bladder. Both ureteral orifices were identified. An open-ended ureteral catheter was used to cannulate the left ureter and retrograde ureteropyelograms were performed. With cystoscope and fluoroscopic guidance, the left-sided indwelling ureteral stent was then placed to coil the patient's renal pelvis as well as the patient's bladder. The retaining suture was cut short. An open-ended catheter was then inserted in the right ureter and retrograde ureteropyelograms were performed. Interpretation of retrograde ureteropyelography contrast was instilled in a retrograde fashion bilaterally. There were filling defects in the upper pole region of the left kidney corresponding to stone debris as well as blood clots from the lithotripsy we performed. There was no hydronephrosis. The stent was in good position, coiled in the patient's renal pelvis as well as the patient's bladder. The right side exhibited a very abnormal upper pole calyceal structure with a collecting system extension that is unusual, but is stable from prior findings. No hydronephrosis was noted. The stone noted on CT and preoperative KUB was not well visualized on fluoroscopic examination. Unobstructed drainage was observed fluoroscopically. The patient's bladder was drained. Cystoscope was withdrawn. Belladonna and opium suppository were placed, revealing the prostate is at least 40 g in size, smooth and non-fluctuant without any nodules. The patient was then uneventfully reversed from anesthesia and taken to recovery room in stable condition. There were no complications of procedure. The patient tolerated the procedure well. Plans will be to re-bring the patient back to the operating room for right ESWL in conjunction with a left ureteroscopy with laser as necessary. Barry Parry MD [place]/[facility] /[id number] cc: Justin Floyd MD
== END | disposition home or self-care (01) ==
LOC: OR 06:00
PROVIDERS: ATTEND Urology
DX: N20.0 Calculus of kidney (principal); N35.919 Unspecified urethral stricture, male, unspecified site; N40.0 Benign prostatic hyperplasia without lower urinary tract symptoms; N32.89 Other specified disorders of bladder; N13.8 Other obstructive and reflux uropathy; R35.1 Nocturia; I49.5 Sick sinus syndrome; F17.210 Nicotine dependence, cigarettes, uncomplicated; Z01.810 Encounter for preprocedural cardiovascular examination; Z01.812 Encounter for preprocedural laboratory examination; Z88.6 Allergy status to analgesic agent; Z88.0 Allergy status to penicillin; Z88.2 Allergy status to sulfonamides; Z95.0 Presence of cardiac pacemaker
CPT/HCPCS: 36415; 50590; 52282; 74018; 85025; 93005; C1758; C1874; J0696; J1100; J1580; J2001; J2250; J2405; J2704; Q9967; J3010

== ENCOUNTER → 2018-12-28 | Day surgery (SDC) | payer MEDICARE, OTHER ==
--- NOTE | 2018-12-27 10:53 | Diagnostic Imaging Report ---
Exam: KUB - 2 views Indication: Preoperative Comparison: Multiple prior abdominal radiographs, most recently of 10/20/2018 Findings: Interval placement of left internal nephroureteral stent with proximal loop overlying the expected location of the renal pelvis and distal loop in the bladder. 6 mm calcific density just lateral to the proximal loop of the stent may represent renal calculus or intraluminal bowel content. Phleboliths in the pelvis. Postoperative changes with surgical clips in the right lower quadrant. Nonobstructive bowel gas pattern. No free air. The partially visualized lung bases appear clear. Partially visualized pacemaker leads terminating in the right atrium and right ventricle. Impression: Interval placement of left internal nephroureteral stent in expected position. 6 mm calcific density lateral to the proximal loop of the stent may represent renal calculus or intraluminal bowel content. Signed by: Hilary Tyler MD on 12/27/2018 10:50 AM
[2018-12-27 11:03] LABS: BASOPHILS # (AUTO) 0.1 (0.0-0.1); BASOPHILS % 1.1 % (0.0-1.0); EOSINOPHILS # (AUTO) 0.5 (0.0-0.4); EOSINOPHILS % 6.6 % (0.0-6.0); HEMATOCRIT 55.1 % (38.2-49.6); HEMOGLOBIN 18.4 g/dL (14.0-18.0); LYMPHOCYTES # (AUTO) 1.5 (1.0-3.2); LYMPHOCYTES % 19.5 % (18.0-39.1); MEAN CORPUSCULAR HEMOGLOBIN 29.8 pg (28-32); MEAN CORPUSCULAR HGB CONC 33.4 g/dL (31-35); MEAN CORPUSCULAR VOLUME 89.2 fL (81-99); MONOCYTES # (AUTO) 0.8 (0.2-0.8); MONOCYTES % 10.2 % (4.4-11.3); NEUTROPHILS # (AUTO) 4.6 (2.1-6.9); NEUTROPHILS % 62.1 % (38.7-80.0); PLATELET COUNT 258 x10e3/uL (140-360); RED BLOOD COUNT 6.18 x10e6/uL (4.3-5.7); RED CELL DISTRIBUTION WIDTH 14.6 % (11.7-14.4)
[~2018-12-28] MED LIST changes: -CEFTRIAXONE SOD 1 GM/NS 50 ML 50 ML IV ONE; +FLUCONAZOLE 100 MG TAB ONE; +LEVOFLOXACIN 500MG/D5W 100ML 100 ML IV ONE; +PHENYLEPHRINE HCL 1% 10 MG/ML VIAL ONE
[2018-12-28 09:45] VITALS: BP 137/80
--- NOTE | 2019-02-03 07:16 | Operative Report ---
DATE OF PROCEDURE: 12/28/2018 SURGEON: Barry Parry MD PREOPERATIVE DIAGNOSES: 1. Bilateral nephrolithiasis. 2. Foreign body (left indwelling ureteral stent). 3. Urethral stricture disease. POSTOPERATIVE DIAGNOSES: 1. Bilateral nephrolithiasis. 2. Foreign body (left indwelling ureteral stent). 3. Urethral stricture disease. OPERATIONS PERFORMED: Note these were all staged procedures as part of multi-staged and multi-step process of managing the patient's urolithiasis. 1. Right-sided extracorporeal shockwave lithotripsy (separate procedure performed for the right nephrolithiasis). 2. Cystourethroscopy with dilation and calibration of urethral stricture (separate procedure performed for the diagnosis of stricture). 3. Cystourethroscopy with complicated removal of left indwelling ureteral stent (separate procedure performed for the diagnosis of stent). 4. Left ureteroscopy with stone manipulation (separate procedure performed to treat the patient's left residual nephrolithiasis). 5. Radiological services with supervision and interpretation of ureteroscopy. 6. Interpretation of retrograde ureteropyelography. ANESTHESIA: General. COMPLICATIONS: None. CLINICAL SUMMARY: Richi Trejo is a 78-year-old man with recurrent urolithiasis. He underwent left ESWL and stent placement. He is brought to the operating today for the above procedures. He is aware of the risks of bleeding, infection, injury to adjacent structures, need for additional procedures and elected to proceed. OPERATIVE PROCEDURE IN DETAIL: Informed consent was verified. Richi Trejo was properly identified and taken to the operating room, placed on the lithotripsy table in supine position. Anesthesia was uneventfully begun. The patient's right nephrolithiasis was localized with biplanar fluoroscopy and maximum amount of shocks were delivered with excellent fragmentation. The patient was then carefully gently repositioned over the dorsal lithotomy position with all pressure points well padded. His genitalia were prepared and draped in the usual sterile fashion. A 22.5-[place]an cystoscope sheath with a visual obturator in place was atraumatically inserted into the patient's urethra. It was guided down the urethra. It showed urethral stricture disease. Some was present mildly just proximal to the patient's hypospadiac urethral meatus. There was significant bulbar urethral stricture present and this was dilated gently to 22.5-[place]an. The patient's bladder was then entered and it was drained. Panendoscopy revealed a stent emerging from the left ureteral orifice. There was not significantly encrusted. There were no suspicious lesions. Trabeculations were noted. A guidewire was then placed in the left ureter and guided to the level of the patient's kidney. The stent was then grasped, completely removed and discarded. A flexible ureteroscope was then placed over the guidewire and guided to the level of the patient's kidney. Panendoscopy of the intrarenal collecting system revealed Norberto's plaques throughout. There was a stone material identified. We irrigated thoroughly and most of the stone burden was found to be fine sand that was stuck together with proteinaceous material. We loosened all this sand and fished out the largest of the fragments atraumatically with Nitinol tipless basket. The patient's bladder was drained. Cystoscope was withdrawn. Belladonna and opium suppositories were placed revealing a 50 g prostate that is smooth, non-fluctuant without any nodules. The patient was then uneventfully reversed from anesthesia and taken to the recovery room in stable condition. There were no complications to the procedure. The patient tolerated the procedure well. Estimated blood loss was minimal. Of note, it should be noted that the patient's urethral stricture disease was dilated relatively atraumatically, and we feel at this time that this is not affecting his urination. The patient's mild regrowth of prostatic tissue following transurethral resection also we believe is not affecting his urination. PLANS: Plans will be to follow the patient up in the office of course indefinitely. Barry MD [place]/[facility] /[id number] cc: Justin Floyd MD
== END | disposition home or self-care (01) ==
LOC: OR 05:00
PROVIDERS: ATTEND Urology
DX: N20.0 Calculus of kidney (principal); Z46.6 Encounter for fitting and adjustment of urinary device; N35.912 Unspecified bulbous urethral stricture, male; N32.89 Other specified disorders of bladder; N28.89 Other specified disorders of kidney and ureter; Z01.812 Encounter for preprocedural laboratory examination
CPT/HCPCS: 36415; 50590; 52352; 74018; 85025; 87086; 88300; C1766; J1100; J1580; J1956; J2001; J2250; J2370; J2405; J2704; J3010; Q9967

== ENCOUNTER → 2020-01-12 | Day surgery (SDC) | payer MEDICARE, OTHER ==
[2020-01-09 15:14] LABS: BASOPHILS # (AUTO) 0.1 (0.0-0.1); BASOPHILS % 1.2 % (0.0-1.0); EOSINOPHILS # (AUTO) 0.6 (0.0-0.4); EOSINOPHILS % 7.6 % (0.0-6.0); HEMATOCRIT 52.3 % (38.2-49.6); HEMOGLOBIN 17.3 g/dL (14.0-18.0); LYMPHOCYTES # (AUTO) 1.6 (1.0-3.2); LYMPHOCYTES % 19.8 % (18.0-39.1); MEAN CORPUSCULAR HEMOGLOBIN 29.8 pg (28-32); MEAN CORPUSCULAR HGB CONC 33.1 g/dL (31-35); MEAN CORPUSCULAR VOLUME 90.2 fL (81-99); MONOCYTES # (AUTO) 1.1 (0.2-0.8); MONOCYTES % 12.9 % (4.4-11.3); NEUTROPHILS # (AUTO) 4.7 (2.1-6.9); NEUTROPHILS % 58.1 % (38.7-80.0); PLATELET COUNT 237 x10e3/uL (140-360); RED CELL DISTRIBUTION WIDTH 14.2 % (11.7-14.4)
[~2020-01-12] MED LIST changes: -B&O 60MG R/S 60 MG SUPP PR ONE; -DEXAMETHASONE SOD PHOS INJ 4 MG/ML VIAL ONE; -FLUCONAZOLE 100 MG TAB ONE; -GENTAMICIN 80MG/NS 100 ML 200 ML IV ONE; +HYDROCODON-ACE1 EAC9; -IOPAMIDOL 610MG/1ML 300 MG/ML VIAL IV ONE; -LEVOFLOXACIN 500MG/D5W 100ML 100 ML IV ONE; -MIDAZOLAM HCL 2 MG/2 ML VIAL ONE; -ONDANSETRON HCL INJ 2MG/ML 2ML 2 MG/ML VIAL ONE; -PHENYLEPHRINE HCL 1% 10 MG/ML VIAL ONE; -SEVOFLURANE INHAL SOLN 250 ML PEN BTL ONE
[2020-01-12 11:02] VITALS: BP 129/76
== END | disposition home or self-care (01) ==
LOC: OR 06:45
PROVIDERS: ATTEND Internal Medicine Gastroenterology
DX: Z09 Encounter for follow-up examination after completed treatment for conditions other than malignant neoplasm (principal); D12.3 Benign neoplasm of transverse colon; K62.1 Rectal polyp; Z98.0 Intestinal bypass and anastomosis status; K57.30 Diverticulosis of large intestine without perforation or abscess without bleeding; K64.8 Other hemorrhoids; Z71.3 Dietary counseling and surveillance; E66.3 Overweight; N20.0 Calculus of kidney; Z01.810 Encounter for preprocedural cardiovascular examination; Z01.812 Encounter for preprocedural laboratory examination; Z11.59 Encounter for screening for other viral diseases; Z88.1 Allergy status to other antibiotic agents; Z88.0 Allergy status to penicillin; Z79.02 Long term (current) use of antithrombotics/antiplatelets; Z68.26 Body mass index [BMI] 26.0-26.9, adult; Z95.0 Presence of cardiac pacemaker
CPT/HCPCS: 36415; 45385; 85025; 93005; J2001; J2704; J3010; U0002

== ENCOUNTER → 2020-08-16 | Day surgery (SDC) | payer MEDICARE, OTHER ==
[~2020-08-16] MED LIST changes: +ASPIRIN81 MG PO; +ATORVASTATIN CA20 MG PO
[2020-08-16 07:45] VITALS: BP 112/70
== END | disposition home or self-care (01) ==
LOC: OR 15:35
PROVIDERS: ATTEND Internal Medicine Gastroenterology
DX: D50.0 Iron deficiency anemia secondary to blood loss (chronic) (principal); K29.50 Unspecified chronic gastritis without bleeding; K31.89 Other diseases of stomach and duodenum; K21.00 Gastro-esophageal reflux disease with esophagitis, without bleeding; K44.9 Diaphragmatic hernia without obstruction or gangrene; Z85.038 Personal history of other malignant neoplasm of large intestine; Z71.3 Dietary counseling and surveillance; I25.10 Atherosclerotic heart disease of native coronary artery without angina pectoris; E66.3 Overweight; Z79.02 Long term (current) use of antithrombotics/antiplatelets; Z68.25 Body mass index [BMI] 25.0-25.9, adult; Z95.0 Presence of cardiac pacemaker
CPT/HCPCS: 43239; 88305; 88312; 93005; J2001; J2704; J3010; U0002

== ENCOUNTER → 2020-12-25 | Outpatient (CLI) | payer MEDICARE ==
[~2020-12-25] MED LIST changes: -FENTANYL CITRATE/PF 100MCG/2 ML INJ ONE; -LIDOCAINE HCL 2% LOCAL INJ 5 ML SDV VIAL INJ ONE; -PROPOFOL IV EMULSION 10 MG/ML 20 ML VIAL ONE
== END ==
LOC: RAD 12:48
PROVIDERS: ATTEND Urology
DX: N20.0 Calculus of kidney (principal)
CPT/HCPCS: 74018

== ENCOUNTER → 2022-01-21 | Day surgery (SDC) | payer MEDICARE, OTHER ==
[2022-01-17 14:32] LABS: BASOPHILS # (AUTO) 0.1 (0.0-0.1); BASOPHILS % 0.9 % (0.0-1.0); EOSINOPHILS # (AUTO) 0.3 (0.0-0.4); HEMATOCRIT 53.7 % (38.2-49.6); HEMOGLOBIN 17.5 g/dL (14.0-18.0); LYMPHOCYTES # (AUTO) 1.5 (1.0-3.2); LYMPHOCYTES % 16.4 % (18.0-39.1); MEAN CORPUSCULAR HEMOGLOBIN 30.7 pg (28-32); MEAN CORPUSCULAR HGB CONC 32.6 g/dL (31-35); MEAN CORPUSCULAR VOLUME 94.2 fL (81-99); MONOCYTES # (AUTO) 1.2 (0.2-0.8); MONOCYTES % 12.9 % (4.4-11.3); NEUTROPHILS # (AUTO) 5.9 (2.1-6.9); NEUTROPHILS % 66.6 % (38.7-80.0); PLATELET COUNT 193 x10e3/uL (140-360); RED CELL DISTRIBUTION WIDTH 13.8 % (11.7-14.4)
[2022-01-17 15:06] LABS: ALANINE AMINOTRANSFERASE 57 IU/L (0-55); ALBUMIN 3.9 g/dL (3.5-5.0); ALBUMIN/GLOBULIN RATIO 1.3 (0.8-2.0); ALKALINE PHOSPHATASE 74 IU/L (40-150); ANION GAP 15.5 mmol/L (8-16); BLOOD UREA NITROGEN 31 mg/dL (7-26); BUN/CREATININE RATIO 23 (6-25); CALCIUM 9.7 mg/dL (8.4-10.2); CARBON DIOXIDE 22 mmol/L (22-29); CHLORIDE 106 mmol/L (98-107); CHOL/HDL RATIO 4.1 (3.9-4.7); CHOLESTEROL 135 MD/DL (0-199); CREATININE, SERUM 1.32 mg/dL (0.72-1.25); GLUCOSE 116 mg/dL (74-118); HDL CHOLESTEROL 33 MG/DL (40-60); LDL CHOLESTEROL 72 MG/DL (60-130); POTASSIUM 4.5 mmol/L (3.5-5.1); SODIUM 139 mmol/L (136-145); TRIGLYCERIDES 150 MG/DL (0-149)
[2022-01-21] VITALS (14 sets, daily range): BP systolic 109–151; BP diastolic 65–89
[~2022-01-21] VITALS: Ht 175.3 cm; Wt 77.1 kg
[~2022-01-21] MED LIST changes: +ALPRAZOLAM 0.5 MG TAB ONE; +DIPHENHYDRAMINE HCL 25 MG CAP ONE; +FENTANYL CITRATE/PF 100MCG/2 ML INJ ONE; +HEPARIN SOD/SOD CHLORIDE 2,000 ML ONE; +IOPAMIDOL 370 MG/ML 100 ML INFUS..BTL INJ ONE; +LIDOCAINE 1% 10 ML MULTIDOSE VIAL IJ ONE; +LORTAB 10 MG-3473 ML PO; +MIDAZOLAM HCL 2 MG/2 ML VIAL ONE; +SODIUM CHLORIDE 0.9% 1000ML 1,000 ML ONE; +VERAPAMIL HCL 2.5 MG/ML 2 ML VIAL ONE
== END | disposition home or self-care (01) ==
LOC: CATH LAB 12:04
PROVIDERS: ATTEND Internal Medicine Interventional Cardiology
DX: I25.118 Atherosclerotic heart disease of native coronary artery with other forms of angina pectoris (principal); E78.2 Mixed hyperlipidemia; F17.210 Nicotine dependence, cigarettes, uncomplicated; Z88.1 Allergy status to other antibiotic agents; Z88.0 Allergy status to penicillin; Z88.8 Allergy status to other drugs, medicaments and biological substances; Z01.812 Encounter for preprocedural laboratory examination; Z20.822 Contact with and (suspected) exposure to COVID-19; Z79.82 Long term (current) use of aspirin; Z79.899 Other long term (current) drug therapy; Z95.0 Presence of cardiac pacemaker
CPT/HCPCS: 0223U; 36415; 80053; 80061; 83880; 85025; 93454; J2250; J3010; J7030; Q9967; 99152

== ENCOUNTER → 2022-05-28 | Outpatient (CLI) | payer MEDICARE, OTHER ==
[~2022-05-28] MED LIST changes: -ALPRAZOLAM 0.5 MG TAB ONE; -DIPHENHYDRAMINE HCL 25 MG CAP ONE; -FENTANYL CITRATE/PF 100MCG/2 ML INJ ONE; -HEPARIN SOD/SOD CHLORIDE 2,000 ML ONE; -IOPAMIDOL 370 MG/ML 100 ML INFUS..BTL INJ ONE; -LIDOCAINE 1% 10 ML MULTIDOSE VIAL IJ ONE; -MIDAZOLAM HCL 2 MG/2 ML VIAL ONE; -SODIUM CHLORIDE 0.9% 1000ML 1,000 ML ONE; -VERAPAMIL HCL 2.5 MG/ML 2 ML VIAL ONE
== END ==
LOC: US 13:40
PROVIDERS: ATTEND Urology
DX: N20.0 Calculus of kidney (principal); N39.0 Urinary tract infection, site not specified
CPT/HCPCS: 74018; 76770

== ENCOUNTER → 2022-06-24 | Outpatient (CLI) | payer MEDICARE | LOC: CT 08:38 | PROVIDERS: ATTEND Urology | DX: N20.0 Calculus of kidney (principal) | CPT/HCPCS: 74176 ==

== ENCOUNTER → 2023-02-20 | Day surgery (SDC) | payer MEDICARE ==
[~2023-02-20] MED LIST changes: +BENICAR20 MG PO; +DEXAMETHASONE SOD PHOS INJ 4 MG/ML SDV ONE; +ETOMIDATE 2 MG/ML 10 ML INJ IV ONE; +FENTANYL CITRATE/PF 100MCG/2 ML INJ ONE; +FLOMAX0.4 MG PO; +GLYCOPYRROLATE INJ 0.2 MG/ML VIAL ONE; +LACTATED RINGER'S 1,000 ML ONE; +LEVOFLOXACIN 500MG/D5W 100ML 100 ML IV ONE; +LIDOCAINE HCL 2% LOCAL INJ 5 ML SDV VIAL INJ ONE; +METOCLOPRAMIDE HCL 10 MG/2ML VIAL ONE; +ONDANSETRON HCL INJ 2MG/ML 2ML 2 MG/ML VIAL ONE; +SEVOFLURANE INHAL SOLN 250 ML PEN BTL ONE; +SUGAMMADEX SODIUM 200 MG/2 ML VIAL IV ONE; +VITAMIN C
[2023-02-20 06:51] LABS: BASOPHILS # (AUTO) 0.1 (0.0-0.1); BASOPHILS % 1.2 % (0.0-1.0); EOSINOPHILS # (AUTO) 0.3 (0.0-0.4); EOSINOPHILS % 3.8 % (0.0-6.0); HEMATOCRIT 58.9 % (38.2-49.6); HEMOGLOBIN 19.3 g/dL (14.0-18.0); LYMPHOCYTES # (AUTO) 1.6 (1.0-3.2); LYMPHOCYTES % 19.6 % (18.0-39.1); MEAN CORPUSCULAR HEMOGLOBIN 30.3 pg (28-32); MEAN CORPUSCULAR HGB CONC 32.8 g/dL (31-35); MEAN CORPUSCULAR VOLUME 92.3 fL (81-99); MONOCYTES % 12.8 % (4.4-11.3); PLATELET COUNT 207 x10e3/uL (140-360); RED BLOOD COUNT 6.38 x10e6/uL (4.3-5.7); RED CELL DISTRIBUTION WIDTH 14.3 % (11.7-14.4)
[2023-02-20 07:10] LABS: ANION GAP 13.5 mmol/L (8-16); CALCIUM 9.9 mg/dL (8.4-10.2); CREATININE, SERUM 1.43 mg/dL (0.72-1.25); POTASSIUM 4.5 mmol/L (3.5-5.1); URIC ACID 8.2 mg/dL (4.8-8.0)
[2023-02-20 09:15] VITALS: BP 125/80; PULSE 60; RESP 17; O2SAT 97
[2023-02-21 06:13] LABS: CALCIUM 9.5 mg/dL (8.6-10.2)
== END | disposition home or self-care (01) ==
LOC: OR 05:43
PROVIDERS: ATTEND Urology
DX: N20.0 Calculus of kidney (principal); Q54.9 Hypospadias, unspecified; I10 Essential (primary) hypertension; E78.5 Hyperlipidemia, unspecified; Z95.0 Presence of cardiac pacemaker; G89.29 Other chronic pain; F17.200 Nicotine dependence, unspecified, uncomplicated; Z88.6 Allergy status to analgesic agent; Z88.1 Allergy status to other antibiotic agents; Z88.0 Allergy status to penicillin; Z88.2 Allergy status to sulfonamides; Z79.82 Long term (current) use of aspirin; Z79.899 Other long term (current) drug therapy
CPT/HCPCS: 36415; 50590; 71046; 74018; 80048; 83970; 84550; 85025; 93005; J1100; J1956; J2001; J2405; J2765; J3010; J7121

== ENCOUNTER → 2024-02-22 | Outpatient (REF) | payer MEDICARE ==
[~2024-02-22] MED LIST changes: -DEXAMETHASONE SOD PHOS INJ 4 MG/ML SDV ONE; -ETOMIDATE 2 MG/ML 10 ML INJ IV ONE; -FENTANYL CITRATE/PF 100MCG/2 ML INJ ONE; -GLYCOPYRROLATE INJ 0.2 MG/ML VIAL ONE; -LACTATED RINGER'S 1,000 ML ONE; -LEVOFLOXACIN 500MG/D5W 100ML 100 ML IV ONE; -LIDOCAINE HCL 2% LOCAL INJ 5 ML SDV VIAL INJ ONE; -METOCLOPRAMIDE HCL 10 MG/2ML VIAL ONE; -ONDANSETRON HCL INJ 2MG/ML 2ML 2 MG/ML VIAL ONE; -SEVOFLURANE INHAL SOLN 250 ML PEN BTL ONE; -SUGAMMADEX SODIUM 200 MG/2 ML VIAL IV ONE
== END ==
LOC: CT 14:48
PROVIDERS: ATTEND Urology
DX: N20.0 Calculus of kidney (principal); K43.9 Ventral hernia without obstruction or gangrene; K57.90 Diverticulosis of intestine, part unspecified, without perforation or abscess without bleeding
CPT/HCPCS: 74176

== ENCOUNTER → 2024-04-07 | Day surgery (SDC) | payer MEDICARE ==
[2024-04-04 09:45] LABS: BASOPHILS # (AUTO) 0.1 (0.0-0.1); BASOPHILS % 1.1 % (0.0-1.0); EOSINOPHILS # (AUTO) 0.7 (0.0-0.4); EOSINOPHILS % 9.1 % (0.0-6.0); HEMATOCRIT 49.2 % (38.2-49.6); HEMOGLOBIN 15.7 g/dL (14.0-18.0); LYMPHOCYTES # (AUTO) 1.3 (1.0-3.2); LYMPHOCYTES % 15.7 % (18.0-39.1); MEAN CORPUSCULAR HEMOGLOBIN 31.8 pg (28-32); MEAN CORPUSCULAR HGB CONC 31.9 g/dL (31-35); MEAN CORPUSCULAR VOLUME 99.8 fL (81-99); MONOCYTES # (AUTO) 0.8 (0.2-0.8); MONOCYTES % 10.1 % (4.4-11.3); NEUTROPHILS # (AUTO) 5.2 (2.1-6.9); NEUTROPHILS % 63.6 % (38.7-80.0); PLATELET COUNT 186 x10e3/uL (140-360); RED BLOOD COUNT 4.93 x10e6/uL (4.3-5.7); RED CELL DISTRIBUTION WIDTH 13.1 % (11.7-14.4)
[~2024-04-07] MED LIST changes: +LIDOCAINE HCL 2% LOCAL 20 ML VIAL ONE; +PHENYLEPHRINE HCL 1% 10 MG/ML VIAL ONE; +PROPOFOL IV EMULSION 10 MG/ML 20 ML VIAL ONE
[2024-04-07] MEDS: LACTATED RINGER'S 1,000 ML ONE (06:37)
[2024-04-07 08:30] VITALS: BP 118/64; PULSE 62; RESP 16; TEMP 97.5; O2SAT 97
== END | disposition home or self-care (01) ==
LOC: OR 05:44
PROVIDERS: ATTEND Internal Medicine Gastroenterology
DX: Z08 Encounter for follow-up examination after completed treatment for malignant neoplasm (principal); D12.2 Benign neoplasm of ascending colon; D12.3 Benign neoplasm of transverse colon; D12.5 Benign neoplasm of sigmoid colon; Z85.038 Personal history of other malignant neoplasm of large intestine; Z98.0 Intestinal bypass and anastomosis status; K57.30 Diverticulosis of large intestine without perforation or abscess without bleeding; K64.8 Other hemorrhoids; Z78.9 Other specified health status; I10 Essential (primary) hypertension; I25.10 Atherosclerotic heart disease of native coronary artery without angina pectoris; E78.5 Hyperlipidemia, unspecified; F17.200 Nicotine dependence, unspecified, uncomplicated; N20.0 Calculus of kidney; M19.90 Unspecified osteoarthritis, unspecified site; G89.29 Other chronic pain; Z88.1 Allergy status to other antibiotic agents; Z88.0 Allergy status to penicillin; Z88.2 Allergy status to sulfonamides; Z88.8 Allergy status to other drugs, medicaments and biological substances; Z01.810 Encounter for preprocedural cardiovascular examination; Z01.812 Encounter for preprocedural laboratory examination; Z79.82 Long term (current) use of aspirin; Z79.899 Other long term (current) drug therapy; Z68.25 Body mass index [BMI] 25.0-25.9, adult; Z95.0 Presence of cardiac pacemaker
CPT/HCPCS: 36415; 45385; 85025; 88305; 93005; J2003; J2371; J2704; J7121

== ENCOUNTER → 2024-06-22 | Day surgery (SDC) | payer MEDICARE ==
[2024-06-21 15:16] LABS: BASOPHILS # (AUTO) 0.1 (0.0-0.1); EOSINOPHILS # (AUTO) 0.4 (0.0-0.4); HEMATOCRIT 44.7 % (38.2-49.6); HEMOGLOBIN 15.1 g/dL (14.0-18.0); LYMPHOCYTES # (AUTO) 1.2 (1.0-3.2); LYMPHOCYTES % 15.3 % (18.0-39.1); MEAN CORPUSCULAR HEMOGLOBIN 31.3 pg (28-32); MEAN CORPUSCULAR HGB CONC 33.8 g/dL (31-35); MEAN CORPUSCULAR VOLUME 92.5 fL (81-99); MONOCYTES # (AUTO) 0.9 (0.2-0.8); MONOCYTES % 11.6 % (4.4-11.3); NEUTROPHILS # (AUTO) 5.4 (2.1-6.9); NEUTROPHILS % 66.9 % (38.7-80.0); PLATELET COUNT 221 x10e3/uL (140-360); RED BLOOD COUNT 4.83 x10e6/uL (4.3-5.7); RED CELL DISTRIBUTION WIDTH 13.6 % (11.7-14.4); WHITE BLOOD COUNT 8.04 x10e3/uL (4.8-10.8)
[2024-06-21 15:47] LABS: ANION GAP 14.3 mmol/L (8-16); CALCIUM 10.2 mg/dL (8.4-10.2); CREATININE, SERUM 1.47 mg/dL (0.72-1.25); POTASSIUM 4.3 mmol/L (3.5-5.1); URIC ACID 7.7 mg/dL (4.8-8.0)
[~2024-06-22] MED LIST changes: +ACETAMINOPHEN 1000 MG/100 ML 100 ML IV ONE; +CIPRO250 MG PO; +DEXAMETHASONE SOD PHOS INJ 4 MG/ML SDV ONE; +FENTANYL CITRATE/PF 100MCG/2 ML INJ ONE; +IRON325 M1 PO; +LACTATED RINGER'S 1,000 ML ONE; +LEVOFLOXACIN 500MG/D5W 100ML 100 ML IV ONE; -LIDOCAINE HCL 2% LOCAL 20 ML VIAL ONE; +LIDOCAINE HCL 2% LOCAL INJ 5 ML SDV VIAL INJ ONE; +MAGNESIUM CITR100 M1 PO; +ONDANSETRON HCL INJ 2MG/ML 2ML 2 MG/ML VIAL ONE; +PHENAZOPYRIDINE HCL 100 MG TAB ONE; +SEVOFLURANE INHAL SOLN 250 ML PEN BTL ONE; +ZINC50 M2 PO
[2024-06-22 09:28] VITALS: TEMP 98.1
[2024-06-22] MEDS: PHENAZOPYRIDINE HCL 100 MG TAB PO ONE ×2 (09:50)
[2024-06-22 10:30] VITALS: BP 142/81; PULSE 71; RESP 18; O2SAT 98
== END | disposition home or self-care (01) ==
LOC: OR 06:07
PROVIDERS: ATTEND Urology
DX: N20.0 Calculus of kidney (principal); N35.919 Unspecified urethral stricture, male, unspecified site; N39.0 Urinary tract infection, site not specified; I12.9 Hypertensive chronic kidney disease with stage 1 through stage 4 chronic kidney disease, or unspecified chronic kidney disease; N18.9 Chronic kidney disease, unspecified; N32.89 Other specified disorders of bladder; Q54.9 Hypospadias, unspecified; N40.1 Benign prostatic hyperplasia with lower urinary tract symptoms; R39.14 Feeling of incomplete bladder emptying; R39.12 Poor urinary stream; Z96.0 Presence of urogenital implants; R35.1 Nocturia; E29.1 Testicular hypofunction; N52.9 Male erectile dysfunction, unspecified; R80.9 Proteinuria, unspecified; N28.1 Cyst of kidney, acquired; N50.0 Atrophy of testis; E66.9 Obesity, unspecified; I25.10 Atherosclerotic heart disease of native coronary artery without angina pectoris; E78.5 Hyperlipidemia, unspecified; K28.9 Gastrojejunal ulcer, unspecified as acute or chronic, without hemorrhage or perforation; K57.90 Diverticulosis of intestine, part unspecified, without perforation or abscess without bleeding; M06.9 Rheumatoid arthritis, unspecified; M19.90 Unspecified osteoarthritis, unspecified site; F17.210 Nicotine dependence, cigarettes, uncomplicated; Z88.1 Allergy status to other antibiotic agents; Z88.0 Allergy status to penicillin; Z88.2 Allergy status to sulfonamides; Z88.8 Allergy status to other drugs, medicaments and biological substances; Z01.810 Encounter for preprocedural cardiovascular examination; Z01.812 Encounter for preprocedural laboratory examination; Z01.818 Encounter for other preprocedural examination; Z79.82 Long term (current) use of aspirin; Z79.899 Other long term (current) drug therapy; Z68.31 Body mass index [BMI] 31.0-31.9, adult; Z95.0 Presence of cardiac pacemaker; Z98.890 Other specified postprocedural states; Z85.038 Personal history of other malignant neoplasm of large intestine; Z98.61 Coronary angioplasty status; Z86.16 Personal history of COVID-19
CPT/HCPCS: 36415; 50590; 52281; 71046; 74018; 80048; 84550; 85025; 87086; 93005; C1758; J0131; J1100; J1956; J2003; J2371; J2405; J2704; J3010; J7121

== ENCOUNTER → 2024-08-05 | Day surgery (SDC) | payer MEDICARE ==
[2024-08-02 10:56] LABS: BASOPHILS # (AUTO) 0.1 (0.0-0.1); BASOPHILS % 1.3 % (0.0-1.0); EOSINOPHILS # (AUTO) 0.4 (0.0-0.4); EOSINOPHILS % 5.1 % (0.0-6.0); HEMATOCRIT 50.2 % (38.2-49.6); HEMOGLOBIN 16.3 g/dL (14.0-18.0); LYMPHOCYTES # (AUTO) 1.5 (1.0-3.2); LYMPHOCYTES % 19.5 % (18.0-39.1); MEAN CORPUSCULAR HEMOGLOBIN 30.5 pg (28-32); MEAN CORPUSCULAR HGB CONC 32.5 g/dL (31-35); MEAN CORPUSCULAR VOLUME 93.8 fL (81-99); MONOCYTES # (AUTO) 0.8 (0.2-0.8); NEUTROPHILS # (AUTO) 4.8 (2.1-6.9); NEUTROPHILS % 62.8 % (38.7-80.0); PLATELET COUNT 210 x10e3/uL (140-360); RED BLOOD COUNT 5.35 x10e6/uL (4.3-5.7); WHITE BLOOD COUNT 7.64 x10e3/uL (4.8-10.8)
[2024-08-02 12:07] LABS: ANION GAP 18.5 mmol/L (8-16); CALCIUM 9.7 mg/dL (8.4-10.2); CREATININE, SERUM 1.44 mg/dL (0.72-1.25); POTASSIUM 4.5 mmol/L (3.5-5.1); URIC ACID 8.1 mg/dL (4.8-8.0)
[~2024-08-05] MED LIST changes: +ACETAMINOPHEN 1000 MG/100 ML 0 ML IV ONE; -ACETAMINOPHEN 1000 MG/100 ML 100 ML IV ONE; -DEXAMETHASONE SOD PHOS INJ 4 MG/ML SDV ONE; +HYDROCHLOROTHIA25 MG PO; -LACTATED RINGER'S 1,000 ML ONE; -LEVOFLOXACIN 500MG/D5W 100ML 100 ML IV ONE; -ONDANSETRON HCL INJ 2MG/ML 2ML 2 MG/ML VIAL ONE; -PHENAZOPYRIDINE HCL 100 MG TAB ONE; -PHENYLEPHRINE HCL 1% 10 MG/ML VIAL ONE
[2024-08-05] MEDS: LACTATED RINGER'S 1,000 ML ONE (13:54)
[2024-08-05] MEDS: GENTAMICIN 80MG/NS 100 ML 200 ML IV ONE (13:54)
[2024-08-05 16:27] VITALS: TEMP 98.7
[2024-08-05 17:27] VITALS: BP 167/82; PULSE 69; RESP 16; O2SAT 97
== END | disposition home or self-care (01) ==
LOC: OR 09:52
PROVIDERS: ATTEND Urology
DX: N20.0 Calculus of kidney (principal); I25.10 Atherosclerotic heart disease of native coronary artery without angina pectoris; E78.5 Hyperlipidemia, unspecified; F17.200 Nicotine dependence, unspecified, uncomplicated; Z88.6 Allergy status to analgesic agent; Z88.1 Allergy status to other antibiotic agents; Z88.0 Allergy status to penicillin; Z88.2 Allergy status to sulfonamides; Z01.812 Encounter for preprocedural laboratory examination; Z01.818 Encounter for other preprocedural examination; Z79.82 Long term (current) use of aspirin; Z79.899 Other long term (current) drug therapy; Z95.0 Presence of cardiac pacemaker; Z85.038 Personal history of other malignant neoplasm of large intestine
CPT/HCPCS: 36415; 50590; 74018; 80048; 84550; 85025; J1580; J2003; J2704; J3010; J7121